=== PATIENT | female | born 2000 | race African-American/Black ===

== ENCOUNTER 2018-04-13 09:27 | Inpatient (IN) | payer OTHER ==
[2018-04-13] MEDS ORDERED: CARBOPROST TROME 250 MCG/ML IM PRN (10:58)
[2018-04-13] MEDS ORDERED: Ringers Lactate 1,000 ML IV PRN (10:58)
[2018-04-13] MEDS ORDERED: MEPERIDINE HCL 25 MG/0.5 ML IV PRN (10:58)
[2018-04-13] MEDS ORDERED: METHYLERGONOVINE 0.2MG/ML AMP IM PRN (10:58)
[2018-04-13] MEDS ORDERED: BUTORPHANOL 1 MG/ML INJ IV PRN (10:58)
[2018-04-13] MEDS ORDERED: PROMETHAZINE 25 MG/ML VIAL IM PRN (10:58)
[2018-04-13] MEDS ORDERED: Ringers Lactate 1,000 ML IV SCH (11:00)
[2018-04-13] MEDS ORDERED: OXYTOCIN/LR 20 UNIT/1,000 ML BAG IV SCH ×2 (11:00→15:00)
[2018-04-13] MEDS ORDERED: OXYTOCIN/LR 20 UNIT/1,000 ML BAG IV ONE (11:09)
[2018-04-13] MEDS ORDERED: Ringers Lactate 2,000 ML IV ONE (11:09)
[2018-04-13 11:26] LABS: RPR Titer ND
[2018-04-13 11:31] LABS: Urine Appearance CLEAR; Urine Bilirubin NEGATIVE (NEG); Urine Blood 1+ (NEG); Urine Color YELLOW; Urine Glucose NEGATIVE (NEG); Urine Protein NEGATIVE (NEG); Urine pH 6.5 (5.0-7.0)
[2018-04-13 11:40] LABS: Urine Microscopic Reflex ORDER UMIC
[2018-04-13 11:57] LABS: Urine Bacteria <20 /HPF (<20); Urine Culture Reflex Order REFLEXED; Urine Mucus 1+ /HPF (NONE SEEN)
--- NOTE | 2018-04-13 12:13 | PREOPHP ---
Date of Admission: 04/13/2018 A 17-year-old, primigravida, 39 weeks 2 days, scheduled to be induced tomorrow. Comes in with active labor, 3 cm at this point, 80% effaced, vertex, -1 station. Rupture of membranes, clear fluid. FHT s normal, reactive. Rh positive, immune to Rubella. Negative beta strep screen. Full admission kristie k given. Anticipate delivery sometime later today. GENESIS/NAE Voice ID: [id number]
[2018-04-13 12:19] VITALS: BMI 25.3
[2018-04-13 12:31] LABS: Absolute Lymphocytes (CBC) 2.2 K/uL (0.7-4.9); Absolute Neutrophil 9.9 K/uL (1.8-8.0); Basophils % 0.2 % (0-1.3); Eosinophils % 0.6 % (0-4.4); Hematocrit 34.5 % (36.0-45.0); Lymphocytes % 16.5 % (15.3-44.8); MCH 29.6 pg (27.0-35.0); MCV 86.2 fL (80-100); MPV 8.9 fL (7.6-11.3); Monocytes % 7.4 % (3.3-12.3)
[2018-04-13] MEDS ORDERED: LIDOCAINE 2% MPF 2 ML VIAL IV ONE (13:14)
[2018-04-13] MEDS ORDERED: LIDOCAINE 2% INJ, 20 mL 20 ML ONE (13:27)
[2018-04-13] MEDS ORDERED: ROPIVACAINE HCL 100 ML IV PRN (13:34)
[2018-04-13] MEDS ORDERED: ROPIVACAINE HCL 0.2% 20ML AMP IV ONE (13:35)
[2018-04-13] MEDS ORDERED: ROPIVACAINE HCL 0 ML ONE (13:42)
[2018-04-13] MEDS ORDERED: ROPIVACAINE HCL 0 ML IV ONE (13:43)
[2018-04-13] MEDS ORDERED: BISACODYL 10 MG RECTAL SUPP RECT PRN (14:28)
[2018-04-13] MEDS ORDERED: Oxycodone HCl/Acetaminophen 1 TAB TAB PO PRN ×2 (14:28)
[2018-04-13] MEDS ORDERED: DOCUSATE NA/SENNA CONC 1 TAB PO PRN (14:28)
[2018-04-13] MEDS ORDERED: DIPHENHYDRAMINE 25 MG TAB/CAP PO PRN (14:28)
[2018-04-13] MEDS ORDERED: ACETAMINOPHEN 500 MG TAB PO PRN (14:28)
[2018-04-14 00:08] LABS: RPR (Rapid Plasma Reagin) NON-REACT (NON-REACT)
--- NOTE | 2018-04-14 01:35 | OP ---
Surgeon: New Cho MD Indications: Ralph Thomson is a 17-year-old, primigravid, at 39 weeks 2 days, scheduled for induction tomorrow, comes in active labor, 2.5 cm, 80% effaced on admission. During the labor, received Stadol IV 1 mg x2, Phenergan 25 mg IM x1. After reaching 6 cm, went rapidly to complete, se cond stage of 15 minutes or less. Spontaneous vaginal delivery of an estimated 7-pound plus male inf ant. Apgars 9 and 9. Small second degree laceration simulating episiotomy, repaired with 2-0 chromi c after local infiltration. Rh positive, immune to Rubella. Negative beta strep screen. Tolerated all procedures well. Final Diagnoses: Term intrauterine , 39 weeks 2 days, spontaneous labor, vaginal delivery. GENESIS/NAE Voice ID: [id number] Report ID: [id number]
[2018-04-14] MEDS: IBUPROFEN 200 MG TAB PO PRN ×2 (05:15→13:47)
[2018-04-14] MEDS ORDERED: Tdap (Diph,Pertuss(Acell),Tet Vac) 0.5 ML SYR IMVAC ONE (09:58)
[2018-04-14 11:10] VITALS: BP 104/66; TEMP 96.8
--- NOTE | 2018-04-14 11:58 | DS ---
Hospital Course: A 17-year-old, primigravida, 39 weeks 2 days, scheduled for induction today. Came in yesterday in active labor. Subsequently delivered a 7-pound plus male infant after a short second stage, Apgars 9 and 9. Midline second-degree laceration repaired with 2-0 chromic under local infil tration. Schultze delivery of the placenta, which was inspected and noted to be intact and normal. A 350 cc or less blood loss. Rh positive, immune to Rubella. Negative beta strep screen. Postpartu m afebrile, ambulating, and voiding. Lochia is normal. Full dismissal instructions given. She will be dismissed later today to report back to my office in 6 weeks for followup, to report any temperat ure elevation of 100 degrees or greater, severe pain, heavy bleeding, or any other type of abnormalit ies. She has not had her Tdap immunization. We will have that before she leaves. Dismissed with tr amadol for analgesia, although she knows this goes through the breast milk if she uses to take Motrin instead. At this point, she is not expressing any signs of discomfort or any other problems. Final Diagnoses: Term intrauterine at 39 weeks 2 days vaginal delivery. Tdap to be admini stered prior to dismissal. GENESIS/NAE Voice ID: [id number] Report ID: [id number]
[2018-04-15 03:02] LABS: HBsAG Nonreactive (Nonreactive)
== END 2018-04-14 16:20 | disposition home or self-care (01) | DRG 775 ==
LOC: L&D 09:27 → 2ND-WC 10:23
PROVIDERS: ADMIT Specialist; ATTEND Specialist
PROC: 10E0XZZ Delivery of Products of Conception, External Approach (ICD-10-PCS; principal; 2018-04-13)
PROC: 0KQM0ZZ Repair Perineum Muscle, Open Approach (ICD-10-PCS; 2018-04-13)
PROC: 10907ZC Drainage of Amniotic Fluid, Therapeutic from Products of Conception, Via Natural or Artificial Opening (ICD-10-PCS; 2018-04-13)
DX: O70.1 Second degree perineal laceration during delivery (principal); Z37.0 Single live birth; Z3A.39 39 weeks gestation of pregnancy; Z23 Encounter for immunization
CPT/HCPCS: 36415; 81003; 81015; 85025; 86592; 86901; 87086; 87088; 87340; 90715; J0595; J2175; J2210; J2550; J2590; J2795